=== PATIENT | female | born 1950 | race Caucasian/White ===

== ENCOUNTER 2024-06-29 10:32 | Day surgery (SDC) | payer MEDICARE, OTHER ==
[~2024-06-29] VITALS: Ht 170.2 cm; Wt 80.4 kg
[~2024-06-29 10:32] MED LIST: NS 500 ML IV ONE
[2024-06-29] MEDS ORDERED: CeFAZolin Sodium 2,000 MG VIAL ONE (10:47)
[2024-06-29] MEDS ORDERED: NS 50 ML IV ONE (10:48)
[2024-06-29] MEDS ORDERED: HYDROCODONE-AC1 EAC7 PO (11:15)
[2024-06-29] MEDS ORDERED: BENAZEPRIL HCL20 M4 PO (11:15)
[2024-06-29] MEDS ORDERED: HUMULIN 70100 UNIT/4 (11:16)
[2024-06-29] MEDS ORDERED: NS 500 ML IV ONE (11:27)
--- NOTE | 2024-06-29 11:31 | NUR ---
06/29/24 1131 Dhiraj Amor, TIMEOUT 1130 LEFT HAND LOCAL 6ML
[2024-06-29] MEDS ORDERED: propofoL 20 ML IV ONE (12:14)
[2024-06-29] MEDS ORDERED: Dexamethasone Sod Phos 10 MG/ML 1ML VIAL ONE (12:15)
[2024-06-29] MEDS ORDERED: Ondansetron HCl 2 MG / ML 2ML Vial ONE (12:15)
== END 2024-06-29 13:15 | disposition home or self-care (01) ==
LOC: ORSCSDS 10:32
PROVIDERS: Orthopaedic Surgery
PROC: 0LN60ZZ Release Left Lower Arm and Wrist Tendon, Open Approach (ICD-10-PCS; principal; 2024-06-29 13:00)
DX: M65.4 Radial styloid tenosynovitis [de Quervain] (principal); E11.9 Type 2 diabetes mellitus without complications; I10 Essential (primary) hypertension; Z79.4 Long term (current) use of insulin; Z79.85 Long-term (current) use of injectable non-insulin antidiabetic drugs; Z79.899 Other long term (current) drug therapy
CPT/HCPCS: 82947; J0690; J1100; J2405; J2704; J7040